=== PATIENT | male | born 1980 ===

== ENCOUNTER 2018-06-10 12:27 | Day surgery (SDC) | payer OTHER, SELFPAY ==
[2018-06-10] MEDS ORDERED: Lidocaine 1% (PF) 30 ML VIAL ONE (12:46)
--- NOTE | 2018-06-10 15:09 | RAD ---
LEFT HAND 3 VIEWS: Date: 06/10/18 HISTORY: Injury of the left fourth finger, nail stuck through finger. FINDINGS: There is a ridged, fairly large caliber nail extending through the distal left finger, which appears to include involvement of the distal interphalangeal joint, as well as the base of the distal phalanx , with some minimal associated bony fragmentation. There is also swelling of the distal middle finger with nondisplaced tuft fracture. IMPRESSION: Foreign body which appears to represent a ridged nail, which appears to extend through the distal int erphalangeal joint, as well as the base of the distal phalanx, with some minimal adjacent bony fragme ntation. Nondisplaced fracture of the distal tuft of the middle finger. Soft tissue swelling. POS: MARISA
[2018-06-10] MEDS ORDERED: CEFAZOLIN 2 GM/50 ML BAG ONE (15:23)
[2018-06-10] MEDS ORDERED: Rocuronium Bromide 10 MG/ML (10ML VIAL) ONE (15:25)
[2018-06-10] MEDS ORDERED: Ketorolac Tromethamine 30 MG/ML VIAL ONE ×2 (15:25→18:26)
[2018-06-10] MEDS ORDERED: Dexamethasone 20 MG/5 ML VIAL ONE (15:25)
[2018-06-10] MEDS ORDERED: Succinylcholine Chloride 20 MG/ML 10 ml SYRINGE FS ONE (15:25)
[2018-06-10] MEDS ORDERED: Ondansetron PF 4 MG/2 ML Vial ONE (15:25)
[2018-06-10] MEDS ORDERED: Lidocaine 1% PF 5 ML VIAL ONE (15:25)
[2018-06-10] MEDS ORDERED: Glycopyrrolate 0.2 MG/ML 5 ML SYRINGE ONE (15:25)
[2018-06-10] MEDS ORDERED: Metoclopramide HCl 10 MG/2 ML VIAL ONE (15:25)
[2018-06-10] MEDS ORDERED: PROPOFOL 200 MG/20 ML VIAL ONE (15:25)
[2018-06-10] MEDS ORDERED: Bupivacaine PF 0.5% 30 ML VIAL ONE (16:35)
[2018-06-10] MEDS ORDERED: Thrombin 5000 UNITS/5 ML VIAL ONE (16:35)
[2018-06-10] MEDS ORDERED: Bacitracin Zinc Ointment 30 gm TUBE ONE (16:35)
[2018-06-10] MEDS ORDERED: Sodium Chloride 0.9% 30 ML ONE (16:35)
[2018-06-10] MEDS ORDERED: Gentamicin Sulfate 80 MG in Premix Bag 1 BAG IVPB SCH (16:45)
[2018-06-10] MEDS ORDERED: Fentanyl 100 MCG/2 ML VIAL ONE (17:24)
--- NOTE | 2018-06-10 18:25 | RAD ---
LEFT FOURTH DIGIT TWO VIEWS: TECHNIQUE: Two intraoperative images obtained. FINDINGS: Images demonstrate the soft tissue and os structures to be intact. IMPRESSION: Normal two views, distal aspect, fourth digit, left hand. POS: [email or web address]
--- NOTE | 2018-06-11 01:26 | OP ---
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 PROCEDURE PERFORMED: 1. C-arm supervision. 2. Debridement of wound to include bone deep, debridement and removal of material associated with open fracture. 3. Open treatment of open distal phalanx fracture. 4. Removal of nail foreign body. 5. Application of short-arm splint. SPECIMEN REMOVED: Both nail and debris along the nail track and it was ribbed and was done in a construction environment. 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 This occurred approximately 4 hours prior to procedure. DESCRIPTION OF PROCEDURE: After successful general LMA technique, the limb was prepped and draped. General anesthesia was applied. He would also get a total of 15 mL of 0.5% Marcaine in metacarpophalangeal block level to the left ring finger. We then brought the C-arm to the field, identified the course and velocity have adequate bone on both sides of the nail. We then cut the portion of the nail on the palmar side which was the entry side and left it only fleshed with skin, so we pulled less debris through the bone. We then gently pulled and twisted until the entire nail came out of the bone. We extended his incision and visualized neurovascular to palm which was intact including digital nerve, but this was debrided around so performed under magnification, debridement of this material associated with open fracture. We then did the same type of debridement of material associated with open fracture on the dorsal side. We retraction and visualized that the 3 mm hole in the bones also with loss of the extensor mechanism. We debrided this with a curette well. We then used a 14-gauge needle to irrigate through and through the hole for a total of 250 mL. Then, we used remainder portion of 3 L normal saline with Pulsavac pressure with antibiotics inside and achieved through and through irrigation. We then reinspected the area and found no further debris and felt the wound was clean, but did not close the portion made by the nail. I used 4-0 nylon to close the portion that I opened as a surgical approach and did the procedure. Tourniquet was deflated. Hemostasis was excellent. The wound was then covered with bulky dressing including bacitracin Adaptic, 4 x 4, Kerlix, Tanner wrap, and a splint short arm. A short-arm was applied. RECOMMENDATION: The patient will be discharged, given a splint to protect the hand and the finger fractures. 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 Antibiotics being given for 1 week along with appropriate Toradol and [place] for pain. Job ID: [id number]
== END 2018-06-10 19:15 | disposition home or self-care (01) ==
LOC: ERS 12:27 → SDC 16:10
PROVIDERS: ATTEND Orthopaedic Surgery Hand Surgery
PROC: 0PBV0ZZ Excision of Left Finger Phalanx, Open Approach (ICD-10-PCS; principal; 2018-06-10)
DX: S62.635B Displaced fracture of distal phalanx of left ring finger, initial encounter for open fracture (principal); Z98.890 Other specified postprocedural states; W29.4XXA Contact with nail gun, initial encounter; Y93.H3 Activity, building and construction; Y99.0 Civilian activity done for income or pay
CPT/HCPCS: 76000; J1580; J1885; J2001; J3010; J3490; S0020